=== PATIENT | female | born 1995 | race African-American/Black ===

== ENCOUNTER 2017-07-01 09:47 | Emergency (ER) | payer MEDICAID ==
[~2017-07-01] VITALS: Ht 170.2 cm; Wt 60.0 kg
[2017-07-01 09:49] VITALS: BP 139/87
== END 2017-07-01 15:29 | disposition left against medical advice (07) ==
LOC: ER 10:15
DX: R11.2 Nausea with vomiting, unspecified (principal); Z53.21 Procedure and treatment not carried out due to patient leaving prior to being seen by health care provider